=== PATIENT | male | born 1970 | race Caucasian/White ===

== ENCOUNTER 2021-07-28 09:56 | Emergency (ER) | payer BC ==
[2021-07-28 10:20] VITALS: TEMP 98; BMI 33.4
[2021-07-28 10:39] LABS: BASO % 0.4 % (0-2.0); EOS % 0.3 % (0-4.5); HEMOGLOBIN 16.6 GM/dL (11.7-16.9); LYMPH % 14.8 % (8-40); MCH 31.5 pg (25.7-33.7); MCHC 33.9 g/dl (32.0-35.9); MEAN PLT VOLUME 9.1 fl (7.5-11.1); MONO % 15.9 % (3.8-10.2); NEUT % 68.6 % (42.8-82.8); PLATELET COUNT 140 10^3/uL (134-434); RBC 5.27 M/mm3 (4.00-5.60); RDW 13.9 % (11.9-15.9); WHITE BLOOD COUNT 7.9 K/mm3 (4.0-10.0)
[2021-07-28 10:57] LABS: CALCIUM 8.7 mg/dL (8.5-10.1)
[2021-07-28 10:58] LABS: ALBUMIN 3.8 g/dl (3.4-5.0)
[2021-07-28] MEDS ORDERED: CASIRIVIMAB/IMDEVIMAB 10 ML in SODIUM CHLORIDE 100 ML IVPB ONE (11:00)
[2021-07-28 11:01] LABS: CREATININE 1.1 mg/dL (0.55-1.3)
[2021-07-28 11:02] LABS: BILIRUBIN,TOTAL 0.6 mg/dL (0.2-1); TOT PROT 7.2 g/dl (6.4-8.2)
[2021-07-28 13:00] VITALS: BP 115/72; PULSE 69
== END 2021-07-28 13:01 | disposition home or self-care (01) ==
LOC: JER 09:56
PROC: 3E033GC Introduction of Other Therapeutic Substance into Peripheral Vein, Percutaneous Approach (ICD-10-PCS; principal; 2021-07-28)
DX: U07.1 COVID-19 (principal)
CPT/HCPCS: 36415; 80053; 85025; 99284-25; Q0240